=== PATIENT | female | born 1995 ===

== ENCOUNTER 2018-06-05 10:14 | Emergency (ER) | payer OTHER ==
[2018-06-05 10:44] VITALS: BP 129/86
--- NOTE | 2018-06-05 10:58 | ED ---
Complex/Multi-Sys Presentation - HPI Summary HPI Summary: 22-year-old otherwise healthy female presents 1 day after fall on slippery pavement while at work. She states that she fell on snow walking into work at [employer] yesterday. She has some minor midline back tenderness which is only a minor issue at present. She states that she also developed a bulge in her umbilicus that has been sore since. She denies any pain radiating down her legs any bowel or bladder difficulty and denies nausea vomiting and diarrhea. She never noticed the bulge in her abdomen prior to the issue yesterday. - History Of Current Complaint Chief Complaint: UCBackPain Time Seen by Provider: 06/05/18 10:46 Hx Obtained From: Patient - Allergies/Home Medications Allergies/Adverse Reactions: Allergies Allergy/AdvReac Type Severity Reaction Status Date / Time amoxicillin Allergy Hives Verified 06/05/18 10:43 Home Medications: Home Medications Levothyroxine TAB* [Synthroid TAB*] 175 mcg PO DAILY 06/05/18 [History Confirmed 06/05/18] PMH/Surg Hx/FS Hx/Imm Hx Previously Healthy: Yes Endocrine/Hematology History: Reports: Hx Thyroid Disease - on meds - Surgical History Surgery Procedure, Year, and Place: [facility] Infectious Disease History: No Infectious Disease History: Denies: Traveled Outside the [place] in Last 30 Days - Family History Known Family History: Positive: Other - grandfather with a umbilical hernia - Social History Occupation: Employed Full-time Alcohol Use: None Substance Use Type: Reports: None Smoking Status (MU): Never Smoked Tobacco Review of Systems Constitutional: Negative Negative: Photophobia ENT: Negative Negative: Chest Pain Negative: Shortness Of Breath Positive: Abdominal Pain, Other - umbilical mass. Negative: Vomiting, Diarrhea , Nausea Genitourinary: Negative Positive: Other - tenderness in the low back. Negative: Decreased ROM Negative: Headache All Other Systems Reviewed And Are Negative: Yes Physical Exam Triage Information Reviewed: Yes Vital Signs On Initial Exam: Initial Vitals Temp Pulse Resp BP Pulse Ox 98.2 F 65 16 129/86 98 06/05/18 10:39 06/05/18 10:39 06/05/18 10:39 06/05/18 10:39 06/05/18 10:39 Vital Signs Reviewed: Yes Appearance: Positive: Well-Appearing, No Pain Distress, Well-Nourished Skin: Positive: Warm, Dry Eyes: Positive: Normal ENT: Positive: Normal ENT inspection Neck: Positive: Nontender Respiratory/Lung Sounds: Positive: Clear to Auscultation Cardiovascular: Positive: RRR Abdomen Description: Positive: Soft, Other: - Slightly purple tender umbilical mass approximately 1 cm across. This is easily reduced with resolution of discomfort Musculoskeletal: Positive: Normal, Strength/ROM Intact, Other - Very minor lower lumbar midline tenderness without muscular tenderness or limitation of range of motion. Neurological: Positive: Sensory/Motor Intact, Alert, Oriented to Person Place, Time, CN Intact II-III, Normal Gait Psychiatric: Positive: Normal Diagnostics - Vital Signs Vital Signs Temp Pulse Resp BP Pulse Ox 06/05/18 10:39 98.2 F 65 16 129/86 98 - Laboratory Lab Statement: Any lab studies that have been ordered have been reviewed, and results considered in the medical decision making process. Complex Multi-Symp Course/Dx Course Of Treatment: Patient complain mostly of discomfort from umbilical hernia. This was reduced easily here. Referral to surgeon was given. She is instructed how to reduce the hernia if needed, and to hold pressure against this when she was straining for bowel movement, etc. NSAID as needed and return to full duty at work. - Diagnoses Differential Diagnoses/HQI/PQRI: Other - Incarcerated hernia, strangulated hernia, lumbar strain, lumbar fracture Provider Diagnoses: Umbilical hernia, Fall on snow, Lumbar contusion Discharge - Sign-Out/Discharge Documenting (check all that apply): Patient Departure All imaging exams completed and their final reports reviewed: No Studies - Discharge Plan Condition: Improved Disposition: HOME Patient Education Materials: Umbilical Hernia (ED) Forms: *Work Release Referrals: Jackie Taylor [Primary Care Provider] - Josh Hernandez MD [Medical Doctor] - Additional Instructions: Ibuprofen as needed for discomfort. Hold pressure against this one your straining for bowel movement. Return with hernia not able to be reduced, increased pain, vomiting, worse or other concerns. Call surgeon today to schedule follow-up - Billing Disposition and Condition Condition: IMPROVED Disposition: Home - Attestation Statements Document Initiated by Scribe: No
== END 2018-06-05 11:08 | disposition home or self-care (01) ==
LOC: UCEAST 10:14
DX: S30.0XXA Contusion of lower back and pelvis, initial encounter (principal); W00.0XXA Fall on same level due to ice and snow, initial encounter; Y93.01 Activity, walking, marching and hiking; Y92.480 Sidewalk as the place of occurrence of the external cause; Y99.0 Civilian activity done for income or pay; K42.9 Umbilical hernia without obstruction or gangrene; E07.9 Disorder of thyroid, unspecified; Z90.49 Acquired absence of other specified parts of digestive tract; Z88.0 Allergy status to penicillin
CPT/HCPCS: 99201; G0463

== ENCOUNTER → 2018-08-14 06:47 | Day surgery (SDC) | payer OTHER ==
--- NOTE | 2018-08-12 14:38 | HP ---
AMENDED REPORT NOW INCLUDES COSIGNER DESIGNATION CC: Dr. Jackie Taylor * PREOPERATIVE HISTORY AND PHYSICAL: DATE OF ADMISSION/SURGERY: 08/14/18 This patient is scheduled for a same-day surgery admission by Dr. Saab on , 08/14/18 DATE OF PREOPERATIVE HISTORY AND PHYSICAL EXAMINATION: 08/12/18 ATTENDING SURGEON: Dr. Sam Saab * (dictated by Danette Singer NP). CHIEF COMPLAINT: Belly button hernia. HISTORY OF PRESENT ILLNESS: The patient is a 22-year-old female referred to Dr. Saab from urgent care for evaluation of umbilical hernia. She described a fall at work in May 2018 and she felt pain at the umbilicus and was subsequently diagnosed with an umbilical hernia and referred to Dr. Saab for further evaluation. Despite taking it easy for 2 weeks, the umbilical hernia remained painful, so Worker's Comp approval was sought and surgery was planned. Dr. Saab recommended open umbilical hernia repair with possible mesh; he described the nature of the surgical procedure, the rationale for the procedure , the relevant risks and benefits and today, I reviewed the expected postoperative care and recovery. The patient denies any nausea, vomiting, constipation, or any signs or symptoms to suggest incarceration or strangulation of the umbilical hernia. The patient has had a chance to ask questions and stated that she understands the information and is satisfied with the answers given to her questions. She will sign surgical consent on the day of surgery. PAST MEDICAL HISTORY: Hypothyroidism, acid reflux. PAST SURGICAL HISTORY: Laparoscopic cholecystectomy in 2012. OBSTETRICAL HISTORY: 2, para 2. She is up-to-date with pelvic and Pap smear and has a Mirena IUD. MEDICATIONS: 1. Levothyroxine 175 mcg p.o. daily in the morning. 2. Protonix 40 mg p.o. daily in the morning. 3. Mirena IUD. ALLERGIES: AMOXICILLIN causes hives. FAMILY HISTORY: Mother is diabetic. No known anesthesia complications, bleeding tendencies, or clotting disorders. She did express concern about having mesh implanted and states that her mother and another relatives have had complications with mesh. SOCIAL HISTORY: She is . 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 She is a nonsmoker. She denies the use of alcohol or other substances. REVIEW OF SYSTEMS: Constitutional: No fevers, chills, excessive fatigue, or weight loss. Endocrine: No diabetes; she is on thyroid replacement therapy. Hematologic: No easy bruising or bleeding. No history of blood transfusions. Respiratory: No dyspnea on exertion. No chronic cough. Cardiovascular: No anginal chest pain or palpitations. Gastrointestinal: No nausea, vomiting, diarrhea, GI bleeding, or constipation; no change in bowel habits; she does have acid reflux and recently was started on Protonix. Genitourinary: No dysuria, no hematuria. Musculoskeletal: No complaints of joint or back pain. Integumentary: No chronic rashes or skin changes. Neurologic: No headache or blurred vision. No areas of focal weakness or numbness. General: No previous anesthesia complications. No history of deep vein thrombosis or pulmonary embolism. PHYSICAL EXAMINATION GENERAL SURVEY: The patient is a 22-year-old obese female, well developed, in no acute distress. VITAL SIGNS: Height 63 inches, weight 230 pounds, body mass index 40.7. Blood pressure 128/84, pulse 76 and regular, respiratory rate 16, temperature 97.7 tympanic. HEENT: Benign. NECK: Supple. No cervical lymphadenopathy. Trachea midline. LUNGS: Breath sounds bilaterally clear and equal. HEART: Regular rate and rhythm. No murmurs or rubs appreciated. ABDOMEN: Obese, soft, nondistended. With the patient standing, coughing and straining, there is a very small umbilical hernia that is deep in the umbilicus ; the defect was approximately 1 cm. It is minimally tender and easily reducible. No palpable masses or organomegaly, but exam is limited by body habitus. PELVIC: Exam is up-to-date, not repeated. RECTAL: Exam is up-to-date, not repeated. EXTREMITIES: Warm without edema or skin ulcerations. NEUROLOGIC: Alert and oriented x3. Steady gait. SKIN: Warm, dry, intact. IMPRESSION: Umbilical hernia. PLAN: Same-day surgery admission to Dr. Saab's service on , 08/14/18 , for open umbilical hernia repair with possible mesh. BRAN SINGER, MANUFACTURING PROCESS TECHNICIAN [id number]/[facility] #: [id number] [facility] PETER'S HOSPITALJulio
[~2018-08-14 06:47] MED LIST: Acetaminophen TAB* 325 MG ONE; Acetaminophen TAB* 325 MG PO ONE; Buffered Lidocaine 1% SYRIN* 1 ML/SYRINGE INTRADERM ONE; Clindamycin 900 MG/D5W BAG(*) 900 MG/50 ML BAG IVPB ONE; Dexamethasone IV* 4 MG/ML 1 ML (4 MG) ONE; DiMENhydriNATE IV* 50 MG/ML VIAL IV PUSH PRN; Famotidine IV* 10 MG/ML 2 ML (20 mg) ONE; Gabapentin CAP(*) 300 MG ONE; Gabapentin CAP(*) 300 MG PO ONE; HYDROcodone/ACETAMIN 5-325 MG* 1 TAB PO PRN; Ketorolac INJ* 30 MG/ML 1 ML VIAL ONE; Lactated Ringers 1000 ML Bag* 1,000 ML IV SCH; Lidocaine 1% INJ* 10 MG/ML 30 ML SDV ONE; Lidocaine 2% PF * 5 ML VIAL ONE; Midazolam* 1 MG/ML 2 ML VIAL (2 MG) ONE; Naloxone* 0.4 MG/ML 1 ML VIAL IV PRN; Ondansetron INJ* 2 MG/ML VIAL IV PRN; Ondansetron INJ* 2 MG/ML VIAL ONE; PROCHLORPERAZINE INJ 5 MG/ML 2 ML VIAL IV PRN; Propofol* 10 MG/ML 20 ML BTL ONE; diPHENhydraMINE IV* 50 MG/ML 1 ml VIAL (BENADRYL) IV PRN; fentaNYL* 50 MCG/ML 2 ML VIAL (100 MCG VIAL) IV PRN; fentaNYL* 50 MCG/ML 2 ML VIAL (100 MCG VIAL) ONE
[2018-08-14 09:47] VITALS: BP 128/84
--- NOTE | 2018-08-14 10:47 | OP ---
CC: Dr. Taylor * DATE OF OPERATION: 08/14/18 - SDS DATE OF : [birth year] SURGEON: Sam Saab MD ANESTHESIOLOGIST: Dr. Pelletier. ANESTHESIA: General anesthetic, local infiltration. PRE-OP DIAGNOSIS: Umbilical hernia. POST-OP DIAGNOSIS: Umbilical hernia. OPERATIVE PROCEDURE: Open umbilical hernia repair with mesh. DESCRIPTION OF PROCEDURE: The patient was supine on the operative table. After adequate general anesthetic, compression stockings, Ana Hugger warmer, and intravenous antibiotics, the abdomen was prepped with antiseptic, draped in a sterile fashion. Local infiltrative anesthesia was administered. Small infraumbilical incision was created and dissection carried down to the hernia defect, which was about a centimeter across. The fascial edges were cleaned up and closed using running 0 Vicryl suture. This created excellent closure. The umbilical skin was tacked back down with 3-0 Vicryl and then the adipose closed with 3-0 Vicryl and skin with 5-0 Vicryl followed by Steri-Strips. She tolerated the procedure well, was awakened and brought to Recovery in good condition. There were no complications. No drains. No pathologic specimen. Sponge and instrument counts were correct. Estimated blood loss was 10 mL. [id number]/[facility] #: [id number] [facility]
== END | disposition home or self-care (01) ==
LOC: OR 06:47
PROVIDERS: ATTEND Surgery
DX: K42.9 Umbilical hernia without obstruction or gangrene (principal); Z68.41 Body mass index [BMI] 40.0-44.9, adult; E03.9 Hypothyroidism, unspecified; K21.9 Gastro-esophageal reflux disease without esophagitis
CPT/HCPCS: 81025; A9270-GY; J1100; J1885; J2250; J2405; J2704; J3010